=== PATIENT | male | born 1960 | race African-American/Black ===

== ENCOUNTER 2024-04-20 08:37 | Emergency (ER) | payer OTHER, SELFPAY ==
[2024-04-20] VITALS (8 sets, daily range): BP systolic 91–125; BP diastolic 62–105; PULSE 90–145; RESP 34–42; TEMP 38; O2SAT 95–97
--- NOTE | 2024-04-20 08:53 | PC.NURSE ---
Spoke with Ashley thomas Laura for report for patient. She states patient was sent to the ED for HTN, diaphoretic and fever. Patient has a G-tube that looks infected and she states she does not know how long it has been like that. patient was seen at [facility] on Saturday for a seizure and discharged back to facility that night.
--- NOTE | 2024-04-20 09:27 | ED.GENADULT ---
HPI - General Adult General Chief complaint: Weakness Stated complaint: WEAKNESS Time Seen by Provider: 04/20/24 08:55 History of Present Illness HPI narrative: Patient is a 63-year-old male who is chronically debilitated from CVAs who presents ER with reports of weakness and fever from his [facility]. Patient was supposed to be evaluated for hospice but that has not yet happened. Patient can provide no history. Related Data Allergies Allergy/AdvReac Type Severity Reaction Status Date / Time No Known Allergies Allergy Verified 04/20/24 09:15 Review of Systems Review of Systems: ROS unobtainable: Yes unobtainable due to medical condition PMFSH Past Medical History Medical History (Updated 04/20/24 @ 12:44 by Aldo Dillon MD) Heart failure Hyperlipidemia Chronic atrial fibrillation Seizures CVA (cerebral vascular accident) Exam Narrative: GENERAL: Chronically ill-appearing, well-nourished, and in no acute distress. HEAD: Normocephalic, atraumatic. ENT: Mucous membranes moist. NECK: Supple. CHEST: Clear to auscultation. No respiratory distress. HEART: Irregularly irregular rate and rhythm that is tachycardic. Normal peripheral pulses. ABDOMEN: Soft, nontender, nondistended, G-tube noted in the epigastric region. EXTREMITIES: No spontaneous movement of the extremities. Lower extremities in air boots to prevent ulcers. SKIN: Warm, dry, no rash. NEURO: Awake but not alert. This is his baseline. Course Course Emergency Course: 926: I spoke with the patient's daughter. She would like me to continue with his workup and give him IV fluids however the overall goal is for him to be on hospice. Care coordination will be consulted in hopes that we can get the patient placed on hospice, likely back at the facility today. 1242: [facility] has been out to evaluate the patient. He does not qualify for general inpatient hospice. Paperwork has been signed. He will go back to his [facility] hospice will be initiated there. Daughter who is a POA has been contacted and is helping drive this plan. Vital Signs Vital signs: Vital Signs Temperature 100.4 F H 04/20/24 08:36 Pulse Rate 90 04/20/24 08:36 Respiratory Rate 42 H 04/20/24 08:36 Blood Pressure 125/105 H 04/20/24 08:36 Pulse Oximetry 95 04/20/24 08:36 Oxygen Delivery Room Air 04/20/24 08:36 Temperature 100.4 F H 04/20/24 08:36 Pulse Rate 90 04/20/24 08:36 Respiratory Rate 42 H 04/20/24 08:36 Blood Pressure 125/105 H 04/20/24 08:36 Pulse Oximetry 95 04/20/24 08:36 Oxygen Delivery Room Air 04/20/24 08:36 Medical Decision Making Vital Signs Vital Signs: Vital Signs Temperature 100.4 F H 04/20/24 08:36 Pulse Rate 90 04/20/24 08:36 Respiratory Rate 42 H 04/20/24 08:36 Blood Pressure 125/105 H 04/20/24 08:36 Pulse Oximetry 95 04/20/24 08:36 Oxygen Delivery Room Air 04/20/24 08:36 Temperature 100.4 F H 04/20/24 08:36 Pulse Rate 90 04/20/24 08:36 Respiratory Rate 42 H 04/20/24 08:36 Blood Pressure 125/105 H 04/20/24 08:36 Pulse Oximetry 95 04/20/24 08:36 Oxygen Delivery Room Air 04/20/24 08:36 Lab Data 04/20/24 10:22 04/20/24 10:22 Labs: Lab Results 04/20/24 04/20/24 Range/Units 09:54 10:22 WBC 13.5 H (4.5-10.0) K/mm3 RBC 3.44 L (4.6-6.20) M/mm3 Hgb 11.1 L (14.0-18.0) g/dL Hct 35.5 L (42.0-52.0) % MCV 103.2 H (80-100) fl MCH 32.3 (26-34) pg MCHC 31.3 L (32-36) g/dl RDW 13.7 (11.5-14.5) % Plt Count 194 (150-375) k/mm3 MPV 11.1 H (7.4-10.4) fl Immature Gran % (Auto) 0.7 H (0-0.5) % Neut % (Auto) 91.5 H (45.5-73.1) % Lymph % (Auto) 5.4 L (18.3-44.2) % [place] % (Auto) 2.2 L (2.6-8.5) % Eos % (Auto) 0.0 (0-4.4) % Baso % (Auto) 0.2 (0.2-1.2) % Lymph # (Auto) 0.73 L (0.9-3.2) K/mm3 [place] # (Auto) 0.3 (0.1-0.6) K/mm3 Eos # (Auto) 0.0 (0-0.3) K/mm3 Baso # (Auto) 0.0 (0.0-0.1) K/mm3 Abs Immat Gran (auto) 0.10 H (0.00-0.031) K/mm3 Absolute Neuts (auto) 12.4 H (1.3-6.7) K/mm3 Absolute Nucleated RBC 0.020 H (0.0-0.012) K/mm3 Nucleated RBC % 0.1 (0.0-0.2) % Sodium 150 H (137-145) mmol/L Potassium 3.2 L (3.4-5.0) mmol/L Chloride 132 H (98-107) mmol/L Carbon Dioxide 9 L (22-30) mmol/L Anion Gap 9 (4-12) mmol/L BUN 66 H (9-20) mg/dL Creatinine 2.66 H (0.7-1.3) mg/dL Estim Creat Clear Calc 28 ml/min Estimated GFR 24 L (59 - ) Glucose 86 (65-110) mg/dL Lactic Acid 1.2 (0.7-2.0) mmol/L Calcium 4.4 L* (8.4-10.2) mg/dL Total Bilirubin 0.8 (0.2-1.3) mg/dL AST 33 (17-59) U/L ALT 26 (6-50) U/L Alkaline Phosphatase 37 L (38-126) U/L C-Reactive Protein 7.9 H (<1.0) mg/dL Total Protein 4.0 L (6.3-8.2) g/dL Albumin 1.4 L (3.5-5.1) g/dL Influenza A (RT-PCR) Negative (Negative) Influenza B (RT-PCR) Negative (Negative) RSV (RT-PCR) Negative (Negative) SARS-CoV-2 RNA (RT-PCR) Negative (Negative) Imaging Data Radiologist's impression: ITS Impressions Chest X-Ray 04/20/24 09:41 IMPRESSION: 1. Small lung volumes with mild atelectasis at the lung bases. 2. Cardiomegaly. Discharge Plan Discharge Clinical Impression: Acute febrile illness, Hypocalcemia, Hypernatremia, Acute kidney injury Patient Disposition: Hospice - Home Condition: Serious Patient Language: Fijian Follow-up/Referrals: UNKNOWN,DOCTOR [Primary Care Provider] -
--- NOTE | 2024-04-20 10:09 | PCCCNOTE ---
0945-Called to the ED after a Hospice referral was place. Called [facility] at [phone] and was able to speak to Laxmi the social director. She stated she placed a referral with [facility] 5 minutes before sending the pt to the hospice. However she thought the pt was sent to [facility]. Called [facility] and spoke to Arleen, and first updated the pt's location, faxed the referral and asked for a nurse to eval the pt d/t the pt's current respirations being 42 breaths per minute to see if the pt would meet for GIP or appropriate to transport back to facility.-shyam.
[2024-04-20] MEDS: SODIUM CHLORIDE 0.9% IV 1,000 ML 999 ML IV CONT ×3 (10:11)
--- NOTE | 2024-04-20 10:16 | PCCCNOTE ---
1016-Arleen with [facility] called, stated they are meeting the daughter here at [facility] at noon to sign paperwork.-shyam. ED charge nurse updated.-shyam.
--- NOTE | 2024-04-20 10:18 | PC.NURSE ---
Care coordination states [facility] will be in house to speak with daughter at 12 today to get hospice paperwork signed.
[2024-04-20 10:27] LABS: Basophils Percent Auto 0.2 % (0.2-1.2); Hematocrit 35.5 % (42.0-52.0); Hemoglobin 11.1 g/dL (14.0-18.0); Immature Granulocyte Percent A 0.7 % (0-0.5); Lymphocytes Absolute Auto 0.73 K/mm3 (0.9-3.2); Lymphocytes Percent Auto 5.4 % (18.3-44.2); Mean Corpuscular HGB Conc 31.3 g/dl (32-36); Mean Corpuscular Hemoglobin 32.3 pg (26-34); Mean Corpuscular Volume 103.2 fl (80-100); Mean Platelet Volume 11.1 fl (7.4-10.4); Monocytes Absolute Auto 0.3 K/mm3 (0.1-0.6); Monocytes Percent Auto 2.2 % (2.6-8.5); Neutrophils Absolute Auto 12.4 K/mm3 (1.3-6.7); Neutrophils Percent Auto 91.5 % (45.5-73.1); Nucleated Red Blood Cells Perc 0.1 % (0.0-0.2); Platelet Count Result 194 k/mm3 (150-375); Red Blood Count 3.44 M/mm3 (4.6-6.20); Red Cell Distribution Width 13.7 % (11.5-14.5); White Blood Count 13.5 K/mm3 (4.5-10.0)
[2024-04-20 10:35] LABS: Influenza A QL RT-PCR Negative (Negative); Influenza B QL RT-PCR Negative (Negative); RSV RNA, RT-PCR Negative (Negative); SARS-CoV-2 RNA PCR Negative (Negative)
[2024-04-20 10:37] LABS: Lactic Acid Reflex 1.2 mmol/L (0.7-2.0)
[2024-04-20 10:39] LABS: Alanine Aminotransferase 26 U/L (6-50); Albumin Level 1.4 g/dL (3.5-5.1); Alkaline Phosphatase 37 U/L (38-126); Anion Gap 9 mmol/L (4-12); Aspartate Amino Transferase 33 U/L (17-59); Bilirubin,Total 0.8 mg/dL (0.2-1.3); Blood Urea Nitrogen 66 mg/dL (9-20); Calcium 4.4 mg/dL (8.4-10.2); Carbon Dioxide 9 mmol/L (22-30); Chloride 132 mmol/L (98-107); Estimated CRCL calculation 28 ml/min; Estimated Glomerular Filt Rate 24; Glucose 86 mg/dL (65-110); Potassium 3.2 mmol/L (3.4-5.0); Sodium 150 mmol/L (137-145)
[2024-04-20 11:32] LABS: CRP 7.9 mg/dL (<1.0)
--- NOTE | 2024-04-20 13:50 | PC.NURSE ---
Pt has irregular heart rate, ranging from 120's-170's. BP with MAP's 70-80's. Pt has had less than 50ml urine output since arrival to ED. Pt to be transported back to [facility] for hospice care. Pt has regular, un-labored respirations at rapid rate of 30-40/min. 96% on RA. Pt has not made any purposeful movement. Maintaining secretions well at this time.
== END 2024-04-20 14:20 | disposition hospice, home (50) ==
PROVIDERS: Emergency Provider Emergency Medicine
DX: N17.9 Acute kidney failure, unspecified (principal); R50.9 Fever, unspecified; E83.51 Hypocalcemia; E87.0 Hyperosmolality and hypernatremia; I50.9 Heart failure, unspecified; I69.998 Other sequelae following unspecified cerebrovascular disease; R53.81 Other malaise; I48.20 Chronic atrial fibrillation, unspecified; E78.5 Hyperlipidemia, unspecified; Z93.1 Gastrostomy status; Z20.822 Contact with and (suspected) exposure to COVID-19; I51.7 Cardiomegaly
CPT/HCPCS: 36415; 71045; 80053; 83605; 85025; 86140; 87637; 96360; 99284; J7030